=== PATIENT | female | born 1950 | race Native Hawaiian/Other Pacific Islander ===

== ENCOUNTER 2016-05-11 12:00 | Outpatient (CLI) | payer OTHER ==
[2016-05-11 12:15] LABS: PLATELET COUNT 301 K/uL (152-353)
[2016-05-11 13:02] LABS: POTASSIUM 3.8 mmol/L (3.6-5.2)
== END 2016-05-11 21:43 | disposition home or self-care (01) ==
LOC: LABW 12:00
PROVIDERS: Internal Medicine Hematology & Oncology
DX: D64.9 Anemia, unspecified (principal); R53.81 Other malaise
CPT/HCPCS: 80053; 82728; 83540; 83550; 85027

== ENCOUNTER 2016-06-06 17:54 | Outpatient (CLI) | payer OTHER | END 2016-06-06 19:12 | disposition home or self-care (01) | LOC: LABW 17:54 | DX: D64.89 Other specified anemias (principal) | CPT/HCPCS: 82272 ==

== ENCOUNTER 2016-07-13 13:28 | Outpatient (CLI) | payer OTHER ==
[2016-07-13 13:46] LABS: PLATELET COUNT 236 K/uL (152-353)
[2016-07-13 16:19] LABS: POTASSIUM 3.9 mmol/L (3.6-5.2)
== END 2016-07-13 14:28 | disposition home or self-care (01) ==
LOC: LABW 13:28
PROVIDERS: Internal Medicine Hematology & Oncology
DX: D64.9 Anemia, unspecified (principal)
CPT/HCPCS: 36415; 80053; 82728; 83540; 83550; 85027

== ENCOUNTER 2016-08-16 10:26 | Outpatient (CLI) | payer OTHER ==
[2016-08-16 10:58] LABS: PLATELET COUNT 258 K/uL (152-353)
[2016-08-16 11:18] LABS: POTASSIUM 3.8 mmol/L (3.6-5.2)
== END 2016-08-16 19:43 | disposition home or self-care (01) ==
LOC: LABW 10:26
PROVIDERS: Nurse Practitioner Family
DX: E11.9 Type 2 diabetes mellitus without complications (principal); D64.89 Other specified anemias; I10 Essential (primary) hypertension; I24.8 Other forms of acute ischemic heart disease; R53.83 Other fatigue
CPT/HCPCS: 36415; 80053; 80061; 81000; 82043; 82570; 82607; 83036; 84439; 84443; 85027; 93005

== ENCOUNTER 2016-10-16 10:26 | Outpatient (CLI) | payer OTHER ==
[2016-10-16 10:49] LABS: PLATELET COUNT 293 K/uL (152-353)
[2016-10-16 12:13] LABS: POTASSIUM 3.7 mmol/L (3.6-5.2)
== END 2016-10-16 19:08 | disposition home or self-care (01) ==
LOC: LABW 10:26
PROVIDERS: Internal Medicine Hematology & Oncology
DX: D64.89 Other specified anemias (principal); R79.0 Abnormal level of blood mineral
CPT/HCPCS: 36415; 80053; 82728; 83540; 83550; 85027

== ENCOUNTER 2016-12-26 13:34 | Outpatient (CLI) | payer OTHER ==
[2016-12-26 13:58] LABS: PLATELET COUNT 227 K/uL (152-353)
[2016-12-26 14:22] LABS: POTASSIUM 3.9 mmol/L (3.6-5.2)
== END 2016-12-26 19:16 | disposition home or self-care (01) ==
LOC: LABW 13:34
PROVIDERS: Internal Medicine Hematology & Oncology
DX: D64.9 Anemia, unspecified (principal)
CPT/HCPCS: 36415; 80053; 82728; 83540; 83550; 85027

== ENCOUNTER 2017-04-01 13:20 | Outpatient (CLI) | payer OTHER ==
[2017-04-01 13:38] LABS: PLATELET COUNT 355 K/uL (152-353)
[2017-04-01 14:02] LABS: POTASSIUM 3.7 mmol/L (3.6-5.2)
== END 2017-04-01 14:20 | disposition home or self-care (01) ==
LOC: LABW 13:20
PROVIDERS: Internal Medicine Hematology & Oncology
DX: D50.0 Iron deficiency anemia secondary to blood loss (chronic) (principal)
CPT/HCPCS: 36415; 80053; 82728; 83550; 85027

== ENCOUNTER 2017-06-11 13:22 | Outpatient (CLI) | payer OTHER ==
[2017-06-11 13:42] LABS: PLATELET COUNT 288 K/uL (152-353)
== END 2017-06-11 19:08 | disposition home or self-care (01) ==
LOC: LABW 13:22
PROVIDERS: Internal Medicine Hematology & Oncology
DX: D50.0 Iron deficiency anemia secondary to blood loss (chronic) (principal)
CPT/HCPCS: 36415; 85027; 85044

== ENCOUNTER 2017-06-15 15:22 | Outpatient (CLI) | payer OTHER | END 2017-06-15 22:55 | disposition home or self-care (01) | LOC: LABW 15:22 | DX: D50.0 Iron deficiency anemia secondary to blood loss (chronic) (principal) | CPT/HCPCS: 82272 ==

== ENCOUNTER 2017-08-12 10:35 | Outpatient (CLI) | payer OTHER ==
[2017-08-12 10:59] LABS: PLATELET COUNT 335 K/uL (152-353)
[2017-08-12 11:22] LABS: POTASSIUM 3.5 mmol/L (3.6-5.2)
== END 2017-08-12 20:03 | disposition home or self-care (01) ==
LOC: LABW 10:35
PROVIDERS: Nurse Practitioner Family
DX: D64.89 Other specified anemias (principal); E11.9 Type 2 diabetes mellitus without complications; Z79.899 Other long term (current) drug therapy; Z51.81 Encounter for therapeutic drug level monitoring; I10 Essential (primary) hypertension; I25.89 Other forms of chronic ischemic heart disease
CPT/HCPCS: 36415; 80053; 80061; 81000; 82043; 82570; 82607; 82728; 83036; 83540; 83550; 84443; 85027

== ENCOUNTER 2017-11-12 13:28 | Outpatient (CLI) | payer OTHER ==
[2017-11-12 14:36] LABS: PLATELET COUNT 164 K/uL (152-353)
== END 2017-11-12 23:50 | disposition home or self-care (01) ==
LOC: LABW 13:28
PROVIDERS: Internal Medicine Hematology & Oncology
DX: D50.0 Iron deficiency anemia secondary to blood loss (chronic) (principal)
CPT/HCPCS: 36415; 80053; 82728; 83540; 83550; 85027

== ENCOUNTER 2018-02-13 12:03 | Outpatient (CLI) | payer OTHER ==
[2018-02-13 12:24] LABS: PLATELET COUNT 262 K/uL (152-353)
[2018-02-13 12:46] LABS: POTASSIUM 4.2 mmol/L (3.6-5.2)
== END 2018-02-13 20:10 | disposition home or self-care (01) ==
LOC: LABW 12:03
PROVIDERS: Nurse Practitioner Family
DX: D50.0 Iron deficiency anemia secondary to blood loss (chronic) (principal)
CPT/HCPCS: 36415; 80053; 82728; 83540; 83550; 85027

== ENCOUNTER 2018-04-30 09:58 | Outpatient (CLI) | payer OTHER ==
[2018-04-30 14:31] LABS: PLATELET COUNT 232 K/uL (152-353)
[2018-04-30 14:47] LABS: POTASSIUM 3.7 mmol/L (3.6-5.2)
[2018-04-30] MEDS ORDERED: LOPRESSOR100 MG PO (17:02)
[2018-04-30] MEDS ORDERED: LORA1TAB17 PO (17:02)
[2018-04-30] MEDS ORDERED: GLIP10TA55 PO (17:03)
[2018-04-30] MEDS ORDERED: LISI10TA11 PO (17:03)
[2018-04-30] MEDS ORDERED: PANTOPRAZOLE 40MG TA PO (17:04)
[2018-04-30] MEDS ORDERED: NORCO 10/325***1 TAB PO (17:05)
[2018-04-30] MEDS ORDERED: PRAVACHOL20 MG PO (17:05)
[2018-04-30] MEDS ORDERED: ASPIRIN/ENTERIC81 MG PO (17:06)
== END 2018-04-30 21:33 | disposition home or self-care (01) ==
LOC: LABW 09:58
PROVIDERS: Nurse Practitioner Family
DX: D50.0 Iron deficiency anemia secondary to blood loss (chronic) (principal); E53.0 Riboflavin deficiency; D64.9 Anemia, unspecified
CPT/HCPCS: 36415; 80053; 82607; 82728; 82746; 83540; 83550; 85027

== ENCOUNTER 2018-04-30 16:24 | Inpatient (IN) | payer OTHER ==
[~2018-04-30] VITALS: Ht 152.4 cm; Wt 67.2 kg
[2018-04-30 16:32] VITALS: BP 170/61; TEMP 97.7
[2018-04-30] MEDS ORDERED: LOPRESSOR100 MG PO (17:02)
[2018-04-30] MEDS ORDERED: LORA1TAB17 PO (17:02)
[2018-04-30] MEDS ORDERED: GLIP10TA55 PO (17:03)
[2018-04-30] MEDS ORDERED: LISI10TA11 PO (17:03)
[2018-04-30] MEDS ORDERED: PANTOPRAZOLE 40MG TA PO (17:04)
[2018-04-30] MEDS ORDERED: NORCO 10/325***1 TAB PO (17:05)
[2018-04-30] MEDS ORDERED: PRAVACHOL20 MG PO (17:05)
[2018-04-30] MEDS ORDERED: ASPIRIN/ENTERIC81 MG PO (17:06)
[2018-04-30 17:46] LABS: PLATELET COUNT 315 K/uL (152-353)
[2018-04-30 18:09] LABS: POTASSIUM 3.8 mmol/L (3.6-5.2)
[2018-04-30 23:45] VITALS: BP 163/54; TEMP 98.2
[2018-05-01] VITALS (23 sets, daily range): BP systolic 125–200; BP diastolic 52–78; TEMP 98.1–98.7; Ht 152.4 cm; Wt 67.2 kg
[2018-05-01 13:48] LABS: PLATELET COUNT 182 K/uL (152-353)
[2018-05-01 14:00] LABS: POTASSIUM 3.7 mmol/L (3.6-5.2)
[2018-05-02] VITALS: BP 155/51; TEMP 98
[2018-05-02 04:00] VITALS: BP 162/49; TEMP 98
[2018-05-02 08:03] VITALS: BP 164/59; TEMP 98
[2018-05-02] MEDS ORDERED: FERROUS SULF325 MG PO (10:45)
[2018-05-02] MEDS ORDERED: FOLI1TAB26 PO (10:45)
[2018-05-02 11:07] LABS: PLATELET COUNT 187 K/uL (152-353)
[2018-05-02 11:26] LABS: POTASSIUM 3.9 mmol/L (3.6-5.2)
== END 2018-05-02 11:25 | disposition home or self-care (01) | DRG 812 ==
LOC: ED 16:24 → ICU 20:25 → MED/SURG 05-01 17:25
PROVIDERS: Emergency Medicine; ADMIT Emergency Medicine
PROC: 30233N1 Transfusion of Nonautologous Red Blood Cells into Peripheral Vein, Percutaneous Approach (ICD-10-PCS; principal; 2018-05-01)
DX: D64.89 Other specified anemias (principal); R07.89 Other chest pain; I10 Essential (primary) hypertension; I25.2 Old myocardial infarction; E11.9 Type 2 diabetes mellitus without complications; E78.49 Other hyperlipidemia
CPT/HCPCS: 36415; 80053; 82550; 82553; 82607; 82728; 83540; 83550; 84466; 84484; 85027; 85044; 86318; 86850; 86900; 86901; 86922; 93005; 99283; J2405; J3490; P9016

== ENCOUNTER 2018-07-09 13:05 | Emergency (ER) | payer OTHER ==
[~2018-07-09] VITALS: Ht 152.4 cm; Wt 67.1 kg
[2018-07-09 13:05] VITALS: TEMP 97.5
[~2018-07-09 13:05] MED LIST: ASPIRIN/ENTERIC81 MG PO; FERROUS SULF325 MG PO; FOLI1TAB26 PO; GLIP10TA55 PO; LISI10TA11 PO; LOPRESSOR100 MG PO; LORA1TAB17 PO; NORCO 10/325***1 TAB PO; PANTOPRAZOLE 40MG TA PO; PRAVACHOL20 MG PO
[2018-07-09 14:12] LABS: PLATELET COUNT 299 K/uL (152-353)
[2018-07-09 14:30] LABS: POTASSIUM 3.2 mmol/L (3.6-5.2)
[2018-07-09 15:18] LABS: PARTIAL THROMBOPLASTIN TIME 28.9 SECONDS (24.5-33.6)
[2018-07-09 16:48] VITALS: BP 184/92
== END 2018-07-09 16:50 | disposition short-term general hospital (02) ==
LOC: ED 13:05
PROVIDERS: Emergency Medicine
PROC: 0T9B70Z Drainage of Bladder with Drainage Device, Via Natural or Artificial Opening (ICD-10-PCS; principal; 2018-07-09)
DX: R79.89 Other specified abnormal findings of blood chemistry (principal); I95.89 Other hypotension; R41.82 Altered mental status, unspecified
CPT/HCPCS: 36415; 36600; 51702; 80053; 80307; 81000; 82272; 82550; 82553; 82805; 84484; 85027; 85610; 85730; 86850; 86900; 86901; 93005; 96361; 96365; 96374; 99285; J2310

== ENCOUNTER 2018-07-21 20:39 | Inpatient (IN) | payer OTHER ==
[~2018-07-21] VITALS: Ht 152.4 cm; Wt 61.7 kg
[2018-07-21 21:12] VITALS: BP 90/60; TEMP 97.8
[2018-07-21 22:54] LABS: PLATELET COUNT 588 K/uL (152-353)
[2018-07-21 23:08] LABS: POTASSIUM 4.6 mmol/L (3.6-5.2)
[2018-07-22] MEDS ORDERED: AMLODIPINE BESYLATE PO (01:58)
[2018-07-22] MEDS ORDERED: CARV25TA PO (02:00)
[2018-07-22] MEDS ORDERED: AMOX875T8 PO (02:00)
[2018-07-22] MEDS ORDERED: B-12500 MCG PO (02:04)
[2018-07-22] MEDS ORDERED: DRISDOL50000 UNIT PO (02:08)
[2018-07-22] MEDS ORDERED: ISOS60TA6 PO (02:09)
[2018-07-22] MEDS ORDERED: HYDR25TA60 PO (02:09)
[2018-07-22] MEDS ORDERED: KLOR-CON M2020 MEQ PO (02:13)
[2018-07-22] MEDS ORDERED: LISI20TA11 PO (02:14)
[2018-07-22 02:27] VITALS: BP 139/53; TEMP 99.2; Ht 152.4 cm; Wt 61.7 kg
[2018-07-22 04:00] VITALS: BP 137/55; TEMP 99.7
[2018-07-22 08:00] VITALS: BP 132/53; TEMP 99
[2018-07-22] MEDS ORDERED: HYDR10TA47A PO (11:02)
[2018-07-22] MEDS ORDERED: LORA1TAB17 PO (11:02)
[2018-07-22] MEDS ORDERED: METO50TA27 PO (11:03)
[2018-07-22] MEDS ORDERED: FE TABS325 MG PO (11:03)
[2018-07-22 11:48] LABS: PLATELET COUNT 578 K/uL (152-353)
[2018-07-22 12:00] VITALS: BP 120/58; TEMP 98.9
[2018-07-22 12:03] LABS: POTASSIUM 4.1 mmol/L (3.6-5.2)
[2018-07-22 16:00] VITALS: BP 116/58; TEMP 98.4
[2018-07-22 20:00] VITALS: BP 140/59; TEMP 99.4
[2018-07-23] VITALS: BP 155/62; TEMP 99
[2018-07-23 04:00] VITALS: BP 148/62; TEMP 99.1
[2018-07-23 05:36] LABS: PLATELET COUNT 541 K/uL (152-353)
[2018-07-23 08:03] VITALS: BP 140/61; TEMP 99.3
[2018-07-23 12:05] VITALS: BP 115/61; TEMP 99.6
[2018-07-23 16:05] VITALS: BP 136/54; TEMP 99.4
[2018-07-23 20:00] VITALS: BP 158/64; TEMP 99.8
[2018-07-24] VITALS: BP 124/49; TEMP 99.3
[2018-07-24 04:00] VITALS: BP 131/58; TEMP 99.9
[2018-07-24 06:09] LABS: PLATELET COUNT 453 K/uL (152-353)
[2018-07-24 06:38] LABS: POTASSIUM 4.5 mmol/L (3.6-5.2)
[2018-07-24 08:00] VITALS: BP 123/66; TEMP 101.7
[2018-07-24] MEDS ORDERED: CIPRO500 MG PO (12:06)
[2018-07-24] MEDS ORDERED: METR250T19 PO (12:07)
== END 2018-07-24 14:30 | disposition home or self-care (01) | DRG 811 ==
LOC: ED 20:39 → MED/SURG 23:45
PROVIDERS: Family Medicine; ADMIT Emergency Medicine
DX: D64.89 Other specified anemias (principal); I21.3 ST elevation (STEMI) myocardial infarction of unspecified site; K62.5 Hemorrhage of anus and rectum; K82.8 Other specified diseases of gallbladder; K52.89 Other specified noninfective gastroenteritis and colitis; I10 Essential (primary) hypertension; R53.1 Weakness
CPT/HCPCS: 36415; 80053; 82272; 83630; 85027; 87015; 87045; 87328; 87329; 87899; 93005; 96360; 96361; 96365; 96366; 99284

== ENCOUNTER 2018-07-26 18:05 | Outpatient (CLI) | payer OTHER ==
[~2018-07-26 18:05] MED LIST changes: +AMLODIPINE BESYLATE PO; +AMOX875T8 PO; +B-12500 MCG PO; +CARV25TA PO; +CIPRO500 MG PO; +DRISDOL50000 UNIT PO; +FE TABS325 MG PO; +HYDR10TA47A PO; +HYDR25TA60 PO; +ISOS60TA6 PO; +KLOR-CON M2020 MEQ PO; +LISI20TA11 PO; +METO50TA27 PO; +METR250T19 PO
== END 2018-07-26 18:06 | disposition short-term general hospital (02) ==
LOC: AMB 18:05
DX: R53.1 Weakness (principal); R26.2 Difficulty in walking, not elsewhere classified
CPT/HCPCS: A0425; A0429

== ENCOUNTER 2018-07-26 18:10 | Observation (INO) | payer OTHER ==
[2018-07-26] VITALS (9 sets, daily range): BP systolic 66–103; BP diastolic 25–48; TEMP 97.5–98.5
[~2018-07-26] VITALS: Ht 152.4 cm; Wt 62.1 kg
[2018-07-26 18:52] LABS: PLATELET COUNT 547 K/uL (152-353)
[2018-07-26 18:58] LABS: POTASSIUM 4.9 mmol/L (3.6-5.2); SODIUM 139 mmol/L (136-145)
[2018-07-27 00:35] VITALS: BP 95/41
[2018-07-27 01:29] VITALS: BP 103/44; TEMP 98.5; Ht 152.4 cm; Wt 62.1 kg
[2018-07-27 04:00] VITALS: BP 107/35; TEMP 99.6
[2018-07-27 08:00] VITALS: BP 107/45; TEMP 99.6
[2018-07-27 12:00] VITALS: BP 108/42; TEMP 99.2
== END 2018-07-27 15:52 | disposition short-term general hospital (02) ==
LOC: ED 18:10 → MED/SURG 21:25
PROVIDERS: Emergency Medicine; Family Medicine; ADMIT Emergency Medicine
PROC: 30233N1 Transfusion of Nonautologous Red Blood Cells into Peripheral Vein, Percutaneous Approach (ICD-10-PCS; principal; 2018-07-27)
DX: K55.8 Other vascular disorders of intestine (principal); D50.8 Other iron deficiency anemias; I12.9 Hypertensive chronic kidney disease with stage 1 through stage 4 chronic kidney disease, or unspecified chronic kidney disease; E11.22 Type 2 diabetes mellitus with diabetic chronic kidney disease; N18.3 Chronic kidney disease, stage 3 (moderate); N17.8 Other acute kidney failure; I95.89 Other hypotension; I25.10 Atherosclerotic heart disease of native coronary artery without angina pectoris; K82.8 Other specified diseases of gallbladder; E78.49 Other hyperlipidemia; R53.1 Weakness
CPT/HCPCS: 36430; 80053; 80061; 80076; 82150; 82550; 83690; 84484; 85014; 85018; 85027; 86850; 86900; 86901; 86922; 87040; 93005; 96360; 96365; 96366; 99220; 99284; G0378; J0744; J3490; P9016

== ENCOUNTER 2018-07-27 16:03 | Outpatient (CLI) | payer OTHER | END 2018-07-27 16:47 | disposition short-term general hospital (02) | LOC: AMB 16:03 | DX: R53.1 Weakness (principal); D50.0 Iron deficiency anemia secondary to blood loss (chronic) | CPT/HCPCS: A0425; A0427 ==

== ENCOUNTER 2018-08-03 21:42 | Outpatient (CLI) | payer OTHER | END 2018-08-03 21:44 | disposition short-term general hospital (02) | LOC: AMB 21:42 | DX: R53.1 Weakness (principal) | CPT/HCPCS: A0425; A0427 ==

== ENCOUNTER 2018-08-03 21:47 | Inpatient (IN) | payer OTHER ==
[~2018-08-03] VITALS: Ht 152.4 cm; Wt 68.3 kg
[2018-08-03 21:57] VITALS: BP 91/41; TEMP 98.4
[2018-08-03 22:19] LABS: PLATELET COUNT 210 K/uL (152-353)
[2018-08-03 22:28] LABS: POTASSIUM 2.9 mmol/L (3.6-5.2); SODIUM 142 mmol/L (136-145)
[2018-08-03 22:30] VITALS: BP 77/36
[2018-08-04] VITALS (7 sets, daily range): BP systolic 83–115; BP diastolic 31–71; TEMP 96.9–98.8; Ht 152.4 cm; Wt 68.3 kg
[2018-08-04 11:29] LABS: PLATELET COUNT 205 K/uL (152-353)
[2018-08-04 11:52] LABS: POTASSIUM 3.7 mmol/L (3.6-5.2)
[2018-08-04 18:37] LABS: POTASSIUM 4.1 mmol/L (3.6-5.2)
[2018-08-05] VITALS: BP 129/60; TEMP 98.8
[2018-08-05 04:48] VITALS: BP 114/63; TEMP 98.1
[2018-08-05 06:09] LABS: PLATELET COUNT 173 K/uL (152-353)
[2018-08-05 06:22] LABS: POTASSIUM 3.7 mmol/L (3.6-5.2)
[2018-08-05 08:00] VITALS: BP 135/56; TEMP 98.5
[2018-08-05 20:00] VITALS: BP 143/63; TEMP 98.9
[2018-08-06] VITALS: BP 146/68; TEMP 98.7
[2018-08-06 05:12] LABS: PLATELET COUNT 184 K/uL (152-353)
[2018-08-06 08:00] VITALS: BP 149/68; TEMP 98.4
== END 2018-08-06 12:30 | disposition home or self-care (01) | DRG 812 ==
LOC: ED 21:47 → MED/SURG 08-04 02:38
PROVIDERS: Emergency Medicine; ADMIT Family Medicine
PROC: 30233N1 Transfusion of Nonautologous Red Blood Cells into Peripheral Vein, Percutaneous Approach (ICD-10-PCS; principal; 2018-08-04)
DX: D64.89 Other specified anemias (principal); N17.8 Other acute kidney failure; K57.32 Diverticulitis of large intestine without perforation or abscess without bleeding; K62.5 Hemorrhage of anus and rectum; E87.6 Hypokalemia; E83.42 Hypomagnesemia; K52.89 Other specified noninfective gastroenteritis and colitis; I25.10 Atherosclerotic heart disease of native coronary artery without angina pectoris; E78.49 Other hyperlipidemia; I10 Essential (primary) hypertension; R53.1 Weakness; E83.51 Hypocalcemia; E11.649 Type 2 diabetes mellitus with hypoglycemia without coma; I25.2 Old myocardial infarction; I95.89 Other hypotension
CPT/HCPCS: 36415; 36416; 36600; 51702; 80053; 81000; 82272; 82550; 82805; 82962; 83036; 83735; 84484; 85014; 85018; 85027; 85379; 86850; 86900; 86901; 86922; 93005; 94760; 96361; 96365; 96366; 96375; 99284; J1200; J1650; J2310; J2405; J3475; J3480; J3490; J7060; P9016

== ENCOUNTER 2018-08-12 12:50 | Outpatient (CLI) | payer OTHER | END 2018-08-12 22:49 | disposition home or self-care (01) | LOC: LABW 12:50 | DX: D62 Acute posthemorrhagic anemia (principal); D50.9 Iron deficiency anemia, unspecified; R19.5 Other fecal abnormalities; K55.9 Vascular disorder of intestine, unspecified; Z87.74 Personal history of (corrected) congenital malformations of heart and circulatory system; K27.9 Peptic ulcer, site unspecified, unspecified as acute or chronic, without hemorrhage or perforation; R10.84 Generalized abdominal pain; R11.0 Nausea; R19.7 Diarrhea, unspecified; R63.0 Anorexia; R63.4 Abnormal weight loss | CPT/HCPCS: 82272; 82705; 83630; 83993; 87015; 87045; 87324; 87328; 87329; 87449; 87899 ==

== ENCOUNTER 2018-11-19 14:29 | Outpatient (CLI) | payer OTHER ==
[2018-11-19 14:58] LABS: POTASSIUM 3.5 mmol/L (3.6-5.2)
== END 2018-11-19 23:40 | disposition home or self-care (01) ==
LOC: LABW 14:29
PROVIDERS: Internal Medicine Cardiovascular Disease
DX: R06.02 Shortness of breath (principal); Z79.899 Other long term (current) drug therapy
CPT/HCPCS: 36415; 80048; 83880

== ENCOUNTER 2018-12-12 05:41 | Outpatient (CLI) | payer OTHER ==
[2018-12-12] MEDS ORDERED: B-12250 MCG PO (08:11)
[2018-12-12] MEDS ORDERED: PEPCID40 MG PO ×2 (08:12→08:13)
[2018-12-12] MEDS ORDERED: FERROUS SULF140 MG PO (08:20)
[2018-12-12] MEDS ORDERED: HYDR10TA47 PO (08:24)
[2018-12-12] MEDS ORDERED: LORA1TAB17 PO (08:24)
[2018-12-12] MEDS ORDERED: METO25TA2 PO (08:26)
[2018-12-12] MEDS ORDERED: PANTOPRAZOLE 40MG TA PO (08:26)
[2018-12-12] MEDS ORDERED: PRAVACHOL20 MG PO (08:27)
[2018-12-12] MEDS ORDERED: CARAFATE1 GM PO (08:27)
[2018-12-12] MEDS ORDERED: SPIRONOLACT25 MG PO (08:29)
[2018-12-12] MEDS ORDERED: VITAMIN D22000 UNIT PO (08:29)
[2018-12-12] MEDS ORDERED: METO100T37 PO (08:31)
== END 2018-12-12 05:43 | disposition short-term general hospital (02) ==
LOC: AMB 05:41
DX: R07.89 Other chest pain (principal); R06.02 Shortness of breath
CPT/HCPCS: A0425; A0427

== ENCOUNTER 2018-12-12 05:53 | Emergency (ER) | payer OTHER ==
[~2018-12-12] VITALS: Ht 152.4 cm; Wt 68.0 kg
[2018-12-12 06:12] LABS: PLATELET COUNT 242 K/uL (152-353)
[2018-12-12 06:24] LABS: POTASSIUM 3.4 mmol/L (3.6-5.2)
[2018-12-12 06:28] LABS: PARTIAL THROMBOPLASTIN TIME 25.4 SECONDS (24.5-33.6)
[2018-12-12] MEDS ORDERED: B-12250 MCG PO (08:11)
[2018-12-12] MEDS ORDERED: PEPCID40 MG PO ×2 (08:12→08:13)
[2018-12-12] MEDS ORDERED: FERROUS SULF140 MG PO (08:20)
[2018-12-12] MEDS ORDERED: LORA1TAB17 PO (08:24)
[2018-12-12] MEDS ORDERED: HYDR10TA47 PO (08:24)
[2018-12-12] MEDS ORDERED: METO25TA2 PO (08:26)
[2018-12-12] MEDS ORDERED: PANTOPRAZOLE 40MG TA PO (08:26)
[2018-12-12] MEDS ORDERED: CARAFATE1 GM PO (08:27)
[2018-12-12] MEDS ORDERED: PRAVACHOL20 MG PO (08:27)
[2018-12-12] MEDS ORDERED: VITAMIN D22000 UNIT PO (08:29)
[2018-12-12] MEDS ORDERED: SPIRONOLACT25 MG PO (08:29)
[2018-12-12] MEDS ORDERED: METO100T37 PO (08:31)
[2018-12-12 08:34] VITALS: BP 163/80; TEMP 98
== END 2018-12-12 10:00 | disposition short-term general hospital (02) ==
LOC: ED 05:53
PROVIDERS: Hospitalist
PROC: 0T9B70Z Drainage of Bladder with Drainage Device, Via Natural or Artificial Opening (ICD-10-PCS; principal; 2018-12-12)
DX: I20.0 Unstable angina (principal); I50.9 Heart failure, unspecified; I10 Essential (primary) hypertension; R06.02 Shortness of breath; F17.210 Nicotine dependence, cigarettes, uncomplicated
CPT/HCPCS: 36415; 36600; 51702; 80053; 81000; 82550; 82805; 83880; 84484; 85027; 85379; 85610; 85730; 93005; 94664; 96372; 96374; 96375; 99285; J1170; J1650; J1940; J2405

== ENCOUNTER 2019-05-12 12:17 | Outpatient (CLI) | payer OTHER ==
[~2019-05-12 12:17] MED LIST changes: +B-12250 MCG PO; +CARAFATE1 GM PO; +FERROUS SULF140 MG PO; +HYDR10TA47 PO; +METO100T37 PO; +METO25TA2 PO; +PEPCID40 MG PO; +SPIRONOLACT25 MG PO; +VITAMIN D22000 UNIT PO
[2019-05-12 13:09] LABS: PLATELET COUNT 208 K/uL (152-353)
[2019-05-12 13:24] LABS: POTASSIUM 4.2 mmol/L (3.6-5.2)
== END 2019-05-12 19:44 | disposition home or self-care (01) ==
LOC: LAB 12:17
PROVIDERS: Nurse Practitioner Family
DX: E11.9 Type 2 diabetes mellitus without complications (principal); Z79.899 Other long term (current) drug therapy; I10 Essential (primary) hypertension; D50.0 Iron deficiency anemia secondary to blood loss (chronic); E78.2 Mixed hyperlipidemia; E55.9 Vitamin D deficiency, unspecified
CPT/HCPCS: 80053; 80061; 81000; 82043; 82306; 82570; 82746; 83036; 83540; 83550; 85027; 87088

== ENCOUNTER 2020-05-12 11:52 | Emergency (ER) | payer OTHER ==
[~2020-05-12] VITALS: Ht 152.4 cm; Wt 68.0 kg
[2020-05-12 11:52] VITALS: TEMP 97.6
[2020-05-12 12:27] LABS: PLATELET COUNT 208 K/uL (152-353)
[2020-05-12 12:34] LABS: POTASSIUM 3.4 mmol/L (3.6-5.2)
[2020-05-12 15:33] VITALS: BP 140/51
== END 2020-05-12 15:33 | disposition home or self-care (01) ==
LOC: ED 11:54
PROVIDERS: Emergency Medicine Emergency Medical Services
DX: R55 Syncope and collapse (principal); S50.11XA Contusion of right forearm, initial encounter; Z03.818 Encounter for observation for suspected exposure to other biological agents ruled out
CPT/HCPCS: 80053; 81000; 85027; 87635; 93005; 96360; 96361; 99284; U0003

== ENCOUNTER 2020-10-08 15:10 | Observation (INO) | payer OTHER ==
[~2020-10-08] VITALS: Ht 152.4 cm; Wt 56.0 kg
[2020-10-08] VITALS (13 sets, daily range): BP systolic 164–234; BP diastolic 65–89; TEMP 98.6–99.2; Ht 152.4 cm; Wt 56.0 kg
[2020-10-08 16:06] LABS: PLATELET COUNT 221 K/uL (152-353)
[2020-10-08 16:18] LABS: POTASSIUM 3.7 mmol/L (3.6-5.2); SODIUM 145 mmol/L (136-145)
[2020-10-09 00:45] VITALS: BP 184/79
[2020-10-09 01:05] VITALS: BP 178/66
[2020-10-09 02:20] VITALS: BP 150/62
[2020-10-09 04:00] VITALS: BP 162/70; TEMP 98.1; TEMP 98.8
[2020-10-09 08:00] VITALS: BP 138/54; TEMP 98.5
[2020-10-09] MEDS ORDERED: LORA1TAB17 PO (10:34)
[2020-10-09] MEDS ORDERED: CLOP75TA2 PO (10:35)
[2020-10-09] MEDS ORDERED: HYDR10TA47 PO (10:36)
[2020-10-09] MEDS ORDERED: CLONIDINE HYDR0.1 M2 PO (10:36)
[2020-10-09] MEDS ORDERED: CARV6.25 PO (10:37)
[2020-10-09] MEDS ORDERED: CRESTOR20 MG PO (10:37)
[2020-10-09] MEDS ORDERED: BELSOMRA10 MG PO (10:38)
[2020-10-09] MEDS ORDERED: ZESTRIL40 MG PO (10:38)
[2020-10-09] MEDS ORDERED: VIT B12/FA PO (10:39)
[2020-10-09 10:40] LABS: PLATELET COUNT 184 K/uL (152-353)
[2020-10-09 12:00] VITALS: BP 183/81; TEMP 98.8
[2020-10-09] MEDS ORDERED: AMLODIPINE BESYLATE PO (14:29)
[2020-10-09] MEDS ORDERED: LEVE500T5 PO (14:32)
== END 2020-10-09 15:15 | disposition home or self-care (01) ==
LOC: ED 15:10 → ICU 18:30 → MED/SURG 18:31
PROVIDERS: ADMIT Family Medicine; ATTEND Internal Medicine
DX: G40.89 Other seizures (principal); Z86.73 Personal history of transient ischemic attack (TIA), and cerebral infarction without residual deficits; I12.9 Hypertensive chronic kidney disease with stage 1 through stage 4 chronic kidney disease, or unspecified chronic kidney disease; E11.22 Type 2 diabetes mellitus with diabetic chronic kidney disease; N18.30 Chronic kidney disease, stage 3 unspecified; J44.9 Chronic obstructive pulmonary disease, unspecified; E78.49 Other hyperlipidemia; I25.10 Atherosclerotic heart disease of native coronary artery without angina pectoris; F17.200 Nicotine dependence, unspecified, uncomplicated; Z79.899 Other long term (current) drug therapy
CPT/HCPCS: 80053; 80307; 81000; 82550; 84484; 85027; 87635; 93005; 96365; 96366; 96372; 96375; 99220; 99285; G0378; J0360; J1953; J2060; U0003

== ENCOUNTER 2021-04-12 14:12 | Outpatient (CLI) | payer OTHER ==
[~2021-04-12 14:12] MED LIST changes: +BELSOMRA10 MG PO; +CARV6.25 PO; +CLONIDINE HYDR0.1 M2 PO; +CLOP75TA2 PO; +CRESTOR20 MG PO; +LEVE500T5 PO; +VIT B12/FA PO; +ZESTRIL40 MG PO
== END 2021-04-12 20:23 | disposition home or self-care (01) ==
LOC: RAD 14:12
PROVIDERS: ATTEND Anesthesiology Pain Medicine
DX: M54.2 Cervicalgia (principal); M54.12 Radiculopathy, cervical region

== ENCOUNTER 2021-06-20 14:40 | Outpatient (CLI) | payer OTHER | END 2021-06-20 18:57 | disposition home or self-care (01) | LOC: RAD 14:40 | PROVIDERS: ATTEND Anesthesiology Pain Medicine | DX: M54.59 Other low back pain (principal); M54.16 Radiculopathy, lumbar region ==

== ENCOUNTER 2022-09-25 11:02 | Outpatient (CLI) | payer OTHER ==
[2022-09-25 11:28] LABS: PLATELET COUNT 228 K/uL (152-353)
== END 2022-09-25 17:00 | disposition home or self-care (01) ==
LOC: LABW 11:02
PROVIDERS: ATTEND Nurse Practitioner Family
DX: I10 Essential (primary) hypertension (principal); Z95.5 Presence of coronary angioplasty implant and graft; D50.0 Iron deficiency anemia secondary to blood loss (chronic); E78.2 Mixed hyperlipidemia; G40.909 Epilepsy, unspecified, not intractable, without status epilepticus; G47.00 Insomnia, unspecified; I25.10 Atherosclerotic heart disease of native coronary artery without angina pectoris; E53.8 Deficiency of other specified B group vitamins; J44.9 Chronic obstructive pulmonary disease, unspecified; E55.9 Vitamin D deficiency, unspecified; R82.998 Other abnormal findings in urine; Z79.899 Other long term (current) drug therapy
CPT/HCPCS: 36415; 80053; 80061; 81000; 82043; 82306; 82570; 82607; 82728; 82746; 83036; 83540; 83550; 83735; 84443; 85027; 87086; 87088